=== PATIENT | male | born 1980 | race Caucasian/White ===

== ENCOUNTER → 2016-09-25 | Outpatient (REF) | payer OTHER ==
[2016-09-25 18:50] LABS: FREE T4 0.87 NG/DL (0.76-1.46)
== END ==
LOC: M LABDRAW1 17:11
PROVIDERS: ATTEND Physician Assistant Medical
DX: E03.9 Hypothyroidism, unspecified (principal)

== ENCOUNTER 2017-06-25 19:29 | Emergency (ER) | payer MEDICAID, OTHER, SELFPAY ==
[~2017-06-25] VITALS: Ht 180.3 cm; Wt 132.8 kg
[2017-06-25] MEDS ORDERED: LEVO175T2 (19:44)
--- NOTE | 2017-06-25 22:20 | REPUSA ---
Clinical history: Pain, swelling. Findings: The common femoral, superficial femoral, popliteal, and other deep venous structures compre ss normally and demonstrate normal color Doppler flow. Normal venous waveforms with augmentation are seen. There is an enlarged lymph node in the right inguinal region measuring 4.7 x 2.0 x.2 7 cm. Impression: No evidence of deep vein thrombosis in the femoral popliteal venous system. Right inguinal lymphadeno aaron.
[2017-06-25] MEDS ORDERED: DOXY100C37 PO (22:50)
[2017-06-25 22:58] VITALS: BP 142/68
[2017-06-25] MEDS ORDERED: DOXYCYCLINE HYCLATE 100 MG TAB PO ONE (23:00)
== END 2017-06-25 23:09 | disposition home or self-care (01) ==
LOC: M ED 19:29
DX: L03.115 Cellulitis of right lower limb (principal)

== ENCOUNTER → 2017-09-16 | Outpatient (REF) | payer OTHER ==
[2017-09-16 12:37] LABS: FREE T4 1.09 NG/DL (0.76-1.46)
== END ==
LOC: M LABDRAW1 11:55
DX: E03.9 Hypothyroidism, unspecified (principal)
CPT/HCPCS: 84443

== ENCOUNTER → 2018-11-03 | Outpatient (REF) | payer OTHER ==
[~2018-11-03] MED LIST: DOXY100C37 PO; LEVO175T2
[2018-11-03 20:08] LABS: FREE T4 0.98 NG/DL (0.76-1.46); THYROID STIMULATING HORMONE 5.92 uIU/ML (0.358-3.740)
== END ==
LOC: M LABDRAW1 15:43
PROVIDERS: ATTEND Nurse Practitioner Family
DX: E03.9 Hypothyroidism, unspecified (principal)

== ENCOUNTER → 2019-07-09 | Outpatient (REF) | payer OTHER ==
[2019-07-09 15:54] LABS: FREE T4 0.93 NG/DL (0.76-1.46); THYROID STIMULATING HORMONE 5.63 uIU/ML (0.358-3.740)
== END ==
LOC: M LABDRAW1 13:58
PROVIDERS: ATTEND Nurse Practitioner Family
DX: E03.9 Hypothyroidism, unspecified (principal)

== ENCOUNTER → 2019-09-17 | Outpatient (REF) | payer MEDICAID, OTHER ==
[2019-09-17 17:22] LABS: FREE T4 0.9 NG/DL (0.76-1.46); THYROID STIMULATING HORMONE 3.69 uIU/ML (0.358-3.740)
== END ==
LOC: M LABDRAW1 15:48
PROVIDERS: ATTEND Nurse Practitioner Family
DX: E03.9 Hypothyroidism, unspecified (principal)

== ENCOUNTER → 2020-03-03 | Outpatient (REF) | payer OTHER | LOC: M SFHCLERA 15:54 | PROVIDERS: ATTEND Physician Assistant | DX: R19.7 Diarrhea, unspecified (principal) ==

== ENCOUNTER → 2020-07-07 | Outpatient (REF) | payer OTHER | LOC: M LAB REF 15:41 | PROVIDERS: ATTEND Physician Assistant | DX: E03.9 Hypothyroidism, unspecified (principal) ==

== ENCOUNTER → 2020-08-01 | Outpatient (REF) | payer OTHER ==
[2020-08-01 17:11] LABS: BLOOD UREA NITROGEN 17 MG/DL (7-18); CALCIUM LEVEL 8.9 MG/DL (8.5-10.1); CARBON DIOXIDE LEVEL 27 MEQ/L (21-32); CHLORIDE LEVEL 108 MEQ/L (98-107); GLOMERULAR FILTRATION RATE > 60.0 (>60); GLUCOSE, FASTING 108 MG/DL (70-100); POTASSIUM SERUM 3.9 MEQ/L (3.5-5.1); SODIUM LEVEL 141 MEQ/L (136-145)
== END ==
LOC: M LAB REF 16:16
PROVIDERS: ATTEND Physician Assistant
DX: I10 Essential (primary) hypertension (principal)

== ENCOUNTER → 2020-09-27 | Outpatient (REF) | payer OTHER, MEDICAID | LOC: M LAB REF 15:43 | PROVIDERS: ATTEND Physician Assistant | DX: E03.9 Hypothyroidism, unspecified (principal) ==

== ENCOUNTER → 2023-07-10 | Outpatient (REF) | payer OTHER, MEDICAID ==
[~2023-07-10] MED LIST changes: +DOXY-443 PO; -DOXY100C37 PO
[2023-07-10 17:33] LABS: FREE T4 0.65 NG/DL (0.89-1.76)
[2023-07-10 17:36] LABS: THYROID STIMULATING HORMONE 12.378 uIU/ML (0.55-4.78)
[2023-07-10 17:41] LABS: THYROID PEROXIDASE ANTIBODY > 1300.0 U/ML (<60.0)
== END ==
LOC: M LAB REF 16:17
PROVIDERS: ATTEND Nurse Practitioner Family
DX: E03.9 Hypothyroidism, unspecified (principal)

== ENCOUNTER → 2024-03-23 | Outpatient (CLI) | payer OTHER ==
[~2024-03-23] MED LIST changes: +DOXY-323 PO; -DOXY-443 PO
== END ==
LOC: M RAD 07:39
PROVIDERS: ATTEND Physician Assistant
DX: E78.5 Hyperlipidemia, unspecified (principal); R74.01 Elevation of levels of liver transaminase levels; K76.0 Fatty (change of) liver, not elsewhere classified; K76.89 Other specified diseases of liver

== ENCOUNTER → 2024-05-19 | Outpatient (CLI) | payer OTHER ==
[~2024-05-19] MED LIST changes: +PROHANCE 279.3MG/ML 15ML VIAL As Ordered ONE; +PROHANCE 279.3MG/ML 5ML VIAL As Ordered ONE
== END ==
LOC: M RAD 10:36
PROVIDERS: ATTEND Physician Assistant
DX: R93.2 Abnormal findings on diagnostic imaging of liver and biliary tract (principal); K76.0 Fatty (change of) liver, not elsewhere classified
CPT/HCPCS: 74183; A9576

== ENCOUNTER → 2025-04-13 | Outpatient (REF) | payer OTHER ==
[~2025-04-13] MED LIST changes: -DOXY-323 PO; +DOXY-441 PO; -PROHANCE 279.3MG/ML 15ML VIAL As Ordered ONE; -PROHANCE 279.3MG/ML 5ML VIAL As Ordered ONE
== END ==
LOC: M LAB REF 17:09
PROVIDERS: ATTEND Nurse Practitioner Family
DX: L97.912 Non-pressure chronic ulcer of unspecified part of right lower leg with fat layer exposed (principal)

== ENCOUNTER → 2025-06-08 | Outpatient (CLI) | payer OTHER | LOC: M RAD 13:22 | PROVIDERS: ATTEND Physician Assistant | DX: I87.311 Chronic venous hypertension (idiopathic) with ulcer of right lower extremity (principal); L97.912 Non-pressure chronic ulcer of unspecified part of right lower leg with fat layer exposed ==

== ENCOUNTER → 2025-07-15 | Outpatient (REF) | payer OTHER ==
[2025-07-15 17:45] LABS: ALT/SGPT 82.0 U/L (7.0-40); AST/SGOT 98.0 U/L (<34); CALCIUM LEVEL 9.1 MG/DL (8.5-10.1); CARBON DIOXIDE LEVEL 26.0 MMOL/L (20-31); CHLORIDE LEVEL 105.0 MMOL/L (98-107); CHOLESTEROL LEVEL 153.0 MG/DL (<200); CHOLESTEROL RISK RATIO 3.23 (<5); CREATININE FOR GFR 1.55 MG/DL (0.70-1.30); GLOMERULAR FILTRATION RATE 55.6 (>60); LDL CHOLESTEROL 87.7 MG/DL (<100); NON-HDL-C 105.7 MG/DL; POTASSIUM SERUM 4.0 MMOL/L (3.5-5.1); SODIUM LEVEL 140.0 MMOL/L (136-145); TRIGLYCERIDES LEVEL 90.0 MG/DL (<150)
[2025-07-20 21:03] LABS: LYME TOTAL ANTIBODY CIA 1.00 Index (<=0.90)
[2025-07-21 00:19] LABS: LYME AB IGG BY CIA <= 0.90 Index (<=0.90); LYME AB IGM BY CIA <= 0.90 Index (<=0.90)
== END ==
LOC: M LAB REF 17:11
PROVIDERS: ATTEND Nurse Practitioner Family
DX: M25.461 Effusion, right knee (principal); I10 Essential (primary) hypertension; E03.9 Hypothyroidism, unspecified